=== PATIENT | female | born 1995 | race American Indian/Alaskan Native ===

== ENCOUNTER 2018-07-02 23:08 | Emergency (ER) | payer MEDICAID ==
--- NOTE | 2018-07-03 01:42 | XRay Report ---
PROCEDURE: XR SPINE THORACIC 2V TECHNIQUE: AP and lateral views of the dorsal spine were obtained. HISTORY: fall, middle back pain COMPARISONS: None FINDINGS: There is no evidence of fracture or soft tissue injury. The disc heights are preserved. The alignment appears normal. IMPRESSION: Within normal limits. This document is electronically signed by Chandana Wolff MD., July 03 2018 01:40:03 AM ET
--- NOTE | 2018-07-03 01:43 | XRay Report ---
PROCEDURE: XR RIBS UNI W PA CHEST 3+V LT TECHNIQUE: 2 views of the left ribs were obtained along with a PA view the chest. HISTORY: fall, left rib pain, CP COMPARISONS: None FINDINGS: There is no evidence of acute rib fracture. The lungs are clear. There is no evidence of pneumothorax or pleural effusion. The heart size is normal. IMPRESSION: Within normal limits.. This document is electronically signed by Chandana Wolff MD., July 03 2018 01:41:21 AM ET
--- NOTE | 2018-07-03 01:56 | Emergency Department Report ---
ED Back Pain/Injury HPI - General Chief Complaint: Chest Pain Stated Complaint: BACK AND CHEST PAIN Time Seen by Provider: 07/03/18 00:24 Source: patient Limitations: No Limitations - History of Present Illness Initial Comments: Pt is a 23 yo female who presents to the ED with c/o left sided middle back pain that began 6 days ago. She also has left sided rib pain and left sided chest pain only when she is lifting something. The patient states the pain is worse with movement and worse when turning over in bed. She states that it began after she was moving furniture. She states she tripped and fell and hit the left side of her back against the wall. She denies any N/V or SOB. She states she has been taking ibuprofen and aleve without much relief. She denies any PMHx. she is a smoker. - Related Data Previous Rx's Medication Instructions Recorded Last Taken Type Cyclobenzaprine [Flexeril] 10 mg PO QHS PRN #10 tablet 07/03/18 Unknown Rx Naproxen 250 mg PO Q8HR #15 tablet 07/03/18 Unknown Rx ED Review of Systems ROS: Stated complaint: BACK AND CHEST PAIN Other details as noted in HPI Comment: All other systems reviewed and negative ED Past Medical Hx - Past Medical History Previous Medical History?: No - Surgical History Past Surgical History?: No - Social History Smoking Status: Light Tobacco Smoker Substance Use Type: Alcohol - Medications Home Medications: Home Medications Medication Instructions Recorded Confirmed Last Taken Type Cyclobenzaprine [Flexeril] 10 mg PO QHS PRN #10 tablet 07/03/18 Unknown Rx Naproxen 250 mg PO Q8HR #15 tablet 07/03/18 Unknown Rx ED Physical Exam - General Limitations: No Limitations General appearance: alert, in no apparent distress - Head Head exam: Present: atraumatic, normocephalic - Eye Eye exam: Present: normal appearance - ENT ENT exam: Present: mucous membranes moist - Respiratory Respiratory exam: Present: normal lung sounds bilaterally, chest wall tenderness (left anterior chest wall tenderness to palpation ). Absent: respiratory distress, wheezes, rales, rhonchi, stridor, accessory muscle use, decreased breath sounds, prolonged expiratory - Cardiovascular Cardiovascular Exam: Present: regular rate, normal rhythm, normal heart sounds, other (mild left sided rib TTP, no obvious deformity ). Absent: systolic murmur, rubs, gallop - Back Exam Back exam: Present: normal inspection, full ROM, paraspinal tenderness (left sided T-spine paraspinal tenderness to palpation, no midline C-spine, T-spine, or L-spine tenderness, no step offs, no deformities). Absent: vertebral tenderness - Neurological Exam Neurological exam: Present: alert, oriented X3 - Psychiatric Psychiatric exam: Present: normal affect, normal mood - Skin Skin exam: Present: warm, dry, intact ED Course Vital Signs 07/02/18 07/02/18 07/03/18 23:15 23:16 02:15 Temperature 98.7 F Pulse Rate 89 70 Respiratory 15 Rate Blood Pressure 145/77 [Right] O2 Sat by Pulse 99 100 Oximetry ED Medical Decision Making - EKG Data -: EKG Interpreted by Mo EKG shows normal: sinus rhythm, axis, intervals, QRS complexes, ST-T waves Rate: normal - Radiology Data Radiology results: report reviewed PROCEDURE: XR SPINE THORACIC 2V TECHNIQUE: AP and lateral views of the dorsal spine were obtained. HISTORY: fall, middle back pain COMPARISONS: None FINDINGS: There is no evidence of fracture or soft tissue injury. The disc heights are preserved. The alignment appears normal. IMPRESSION: Within normal limits. This document is electronically signed by Chandana Wolff MD., July 03 2018 01:40:03 AM ET PROCEDURE: XR RIBS UNI W PA CHEST 3+V LT TECHNIQUE: 2 views of the left ribs were obtained along with a PA view the chest. HISTORY: fall, left rib pain, CP COMPARISONS: None FINDINGS: There is no evidence of acute rib fracture. The lungs are clear. There is no evidence of pneumothorax or pleural effusion. The heart size is normal. IMPRESSION: Within normal limits.. This document is electronically signed by Chandana Wolff MD., July 03 2018 01:41:21 AM ET - Medical Decision Making Pt is a 23 yo female who presents to the ED with c/o left sided middle back pain that began 6 days ago. She also has left sided rib pain and left sided chest pain only when she is lifting something. The patient states the pain is worse with movement and worse when turning over in bed. She states that it began after she was moving furniture. She states she tripped and fell and hit the left side of her back against the wall. She denies any N/V or SOB. She states she has be en taking ibuprofen and aleve without much relief. She denies any PMHx. she is a smoker. XR of the c-spine and left ribs, and CXR all with no acute process. Symptoms and exam consistent with a muscle strain. Neuro exam is normal. Will place pt on anti-inflammatory and muscle relaxer. Advised pt to only use the muscle relaxer at night as needed for muscle spasm and do not drive or operate heavy machinery. Follow up with PCP in the next 2-3 days. Return to the ED with any new or worsening symptoms. - Differential Diagnosis Muscle strain, Costochrondritis Critical care attestation.: If time is entered above; I have spent that time in minutes in the direct care of this critically ill patient, excluding procedure time. ED Disposition Clinical Impression: Muscle strain Disposition: - TO HOME OR SELFCARE Is pt being admited?: No Does the pt Need Aspirin: No Condition: Stable Instructions: Muscle Strain (ED) Additional Instructions: Follow up with your primary care doctor in the next 2-3 days. Take medication as prescribed. Only use muscle relaxer at night as needed for muscle spasm do not drive or operate heavy machinery while taking. Return to the emergency room for any new or worsening symptoms Prescriptions: Cyclobenzaprine [Flexeril] 10 mg PO QHS PRN #10 tablet PRN Reason: Muscle Spasm Naproxen 250 mg PO Q8HR #15 tablet Referrals: BRI PULIDO MD [Primary Care Provider] - 2-3 Days Forms: Work/School Release Form(ED) Time of Disposition: 02:02 Print Language: [id number]
[2018-07-03 02:17] VITALS: BP 145/77
== END 2018-07-03 02:15 | disposition home or self-care (01) ==
LOC: ED 23:08
DX: S29.012A Strain of muscle and tendon of back wall of thorax, initial encounter (principal); F17.200 Nicotine dependence, unspecified, uncomplicated; X58.XXXA Exposure to other specified factors, initial encounter; Y93.9 Activity, unspecified; Y92.89 Other specified places as the place of occurrence of the external cause; Y99.8 Other external cause status
CPT/HCPCS: 72070; 93005; 93010